=== PATIENT | female | born 1985 | race Caucasian/White ===

== ENCOUNTER 2017-07-13 18:53 | Emergency (ER) | payer BC, OTHER ==
[2017-07-13] MEDS ORDERED: methylPREDNISolone Sod Succ/PF 125 MG/2 ML VIAL ONE (19:43)
== END 2017-07-13 20:00 | disposition home or self-care (01) ==
LOC: BURERS 18:53
DX: L25.5 Unspecified contact dermatitis due to plants, except food (principal); Z79.899 Other long term (current) drug therapy
CPT/HCPCS: 96372; J2930